=== PATIENT | female | born 1960 | race Two or more races ===

== ENCOUNTER 2018-12-13 12:45 | Inpatient (IN) | payer OTHER ==
[~2018-12-13] VITALS: Ht 162.6 cm; Wt 83.0 kg
[2018-12-15] MEDS ORDERED: ZOCOR20 MG PO (15:39)
[2018-12-15] MEDS ORDERED: ZOLOFT50 MG PO (15:40)
[2018-12-15] MEDS ORDERED: XANAX1 MG PO (15:40)
[2018-12-15] MEDS ORDERED: OMEPRAZOLE PO (15:41)
[2018-12-23] MEDS ORDERED: OMEPRAZOLE20 MG PO (14:00)
== END 2019-01-03 10:29 | disposition home or self-care (01) | DRG 330 ==
LOC: O/R 12-23 08:00 → SURH 12-23 08:00 → SURG 12-23 11:30 → SURH 12-24 01:23
PROVIDERS: ADMIT Colon & Rectal Surgery
PROC: 0DBN4ZZ Excision of Sigmoid Colon, Percutaneous Endoscopic Approach (ICD-10-PCS; 2018-12-23)
PROC: 07TD4ZZ Resection of Aortic Lymphatic, Percutaneous Endoscopic Approach (ICD-10-PCS; 2018-12-23)
PROC: 0DTJ4ZZ Resection of Appendix, Percutaneous Endoscopic Approach (ICD-10-PCS; 2018-12-23)
PROC: 0DJD8ZZ Inspection of Lower Intestinal Tract, Via Natural or Artificial Opening Endoscopic (ICD-10-PCS; 2018-12-23)
PROC: 0DBF4ZZ Excision of Right Large Intestine, Percutaneous Endoscopic Approach (ICD-10-PCS; principal; 2018-12-23 12:15)
PROC: BW21Y0Z Computerized Tomography (CT Scan) of Abdomen and Pelvis using Other Contrast, Unenhanced and Enhanced (ICD-10-PCS; 2018-12-26)
PROC: 3E0F7GC Introduction of Other Therapeutic Substance into Respiratory Tract, Via Natural or Artificial Opening (ICD-10-PCS; 2018-12-26)
PROC: 0DH67UZ Insertion of Feeding Device into Stomach, Via Natural or Artificial Opening (ICD-10-PCS; 2018-12-28)
PROC: 3E0G76Z Introduction of Nutritional Substance into Upper GI, Via Natural or Artificial Opening (ICD-10-PCS; 2018-12-28)
DX: D12.0 Benign neoplasm of cecum (principal); K57.32 Diverticulitis of large intestine without perforation or abscess without bleeding; K35.890 Other acute appendicitis without perforation or gangrene; K91.31 Postprocedural partial intestinal obstruction; R18.8 Other ascites; J98.11 Atelectasis; J90 Pleural effusion, not elsewhere classified; E44.0 Moderate protein-calorie malnutrition; T81.41XA Infection following a procedure, superficial incisional surgical site, initial encounter; R59.0 Localized enlarged lymph nodes; K21.9 Gastro-esophageal reflux disease without esophagitis; F32.89 Other specified depressive episodes; D72.828 Other elevated white blood cell count; K76.0 Fatty (change of) liver, not elsewhere classified; M54.5 Low back pain; E78.49 Other hyperlipidemia; E87.6 Hypokalemia